=== PATIENT | female | born 1955 | race Caucasian/White ===

== ENCOUNTER 2023-07-18 05:39 | Emergency (ER) | payer BC, MEDICARE ==
[~2023-07-18] VITALS: Ht 160 cm; Wt 69.0 kg
[2023-07-18] MEDS ORDERED: HYDROCODON-ACE1 EA10 PO (07:26)
[2023-07-18 07:56] VITALS: BP 134/88
== END 2023-07-18 07:58 | disposition home or self-care (01) ==
LOC: ED 05:39
DX: S52.522A Torus fracture of lower end of left radius, initial encounter for closed fracture (principal); W19.XXXA Unspecified fall, initial encounter; Y93.H2 Activity, gardening and landscaping; Z88.0 Allergy status to penicillin
CPT/HCPCS: 73110; 99283-25; A9270

== ENCOUNTER 2025-09-26 09:08 | Day surgery (SDC) | payer MEDICARE, BC ==
[~2025-09-26] VITALS: Ht 167.6 cm; Wt 65.0 kg
[~2025-09-26 09:08] MED LIST: CALCIUM500 M1 PO; FLUTICASONE PRO16 GM NAS; GINKGO BILOBA40 M1 PO; HYDROCODON-ACE1 EA10 PO; IBLOOD GLUCOSE TEST STRIP 1 EA TEST VI PRN; IPRATROPIUM BRO30 ML NAS; KEPPRA500 MG PO; LACTATED RINGER'S 1,000 ML IV SCH; LIDOCAINE HCL 1% 5 ML SDV INJ ONE; OMEPRAZOLE20 MG PO; VITAMIN D325 MC4 PO; ZINC30 MG PO
[2025-09-26 09:33] VITALS: BP 107/62
[2025-09-26] MEDS ORDERED: LIDOCAINE HCL 2% 5 ML SDV ONE (11:26)
--- NOTE | 2025-09-26 12:20 | NUR ---
09/26/25 1220 Huong Burdick 1210-PATIENT ARRIVED TO PACU ON 6L MASK RR EVEN NONAROUSABLE PATIENT COUGHING. SR HR 80-90'S IVF INFUSING. ABDOMEN SOFT LAYING LEFT LATERAL. 1212-PATIENT COUGHING NONAROUSABLE MOUTH SUCTIONED CLEAR SECRETIONS. 1220-PATIENT REMAINS NONAROUSABLE 6L MASK RR EVEN 100% IVF INFUSING.
[2025-09-26 13:13] VITALS: BP 120/67
--- NOTE | 2025-09-26 13:38 | NUR ---
1315: PATIENT BACK IN DAY SURGERY ROOM FROM PACU. DENIES PAIN. REQUESTING MORE TIME TO REST. VS CHECKED. CALL LIGHT WITHIN REACH. AT BEDSIDE.
--- NOTE | 2025-10-01 18:02 | PATH ---
[facility] [address] [facility] [place], [place] [address] Signed SPECIMEN(S): A RECTAL POLYP, 10 CM SPECIMEN SOURCE: A. RECTAL POLYP, 10 CM CLINICAL HISTORY: History of polyps, screening. Post colon sigmoid diverticulitis, internal hemorrhoid, polyp at 10 cm. FINAL PATHOLOGIC DIAGNOSIS: rectum polypectomy, 10 cm: - Hyperplastic polyp. IRG MICROSCOPIC EXAMINATION: Histologic sections of all submitted blocks (or IHC as applicable) are digitally scanned and examined. These findings, together with the gross examination, support the pathologic diagnosis. GROSS DESCRIPTION: The specimen, labeled and designated "Tito Ayala, " and designated on the requisition "rectum polypectomy, 10 cm," is received in formalin and consists of two harrison soft tissue fragments that measure 0.2 and 0.3 cm in greatest dimension. The specimen is entirely submitted in (A1). FB (under the direct supervision of a pathologist) The Gross Description was prepared using a voice recognition system. The report was reviewed for accuracy; however, sound-alike word errors, addition and/or deletions may occur. If there is any question about this report, please contact Client Services. ADDITIONAL NOTES: Immunohistochemical and/or in situ hybridization studies if performed in this case included appropriate positive controls that reacted as expected. This test was developed and its performance characteristics determined by [facility]. It has not been cleared or approved by the U.S. Food and Drug Administration. The FDA has determined that such clearance or approval is not necessary. This test is used for clinical purposes. It should not be regarded as investigational or for research. [facility] is certified under the Clinical Laboratory Improvement PATIENT NAME: RADHA AYALA PATHOLOGY DATE OF : 55 REPORT #: [id number] PHYSICIAN: VIJAY SAUNDERS PCP: MELBA PRESTON PA-C REPORT IS CONFIDENTIAL AND NOT TO BE RELEASED WITHOUT AUTHORIZATION [facility] [address] [place], [place] [address], [place] [address] Signed Amendments of 1988 (CLIA) as qualified to perform high complexity clinical laboratory testing. PERFORMING LABORATORY: Technical component was performed by [facility], [address] [place] [address] (CLIA# [id number]). Professional interpretation was performed by [facility], [address] [place] [id number] (CLIA#: [id number]). Diagnostician: Tj Farmer MD Pathologist Electronically Signed 10/01/2025 Copies: ~ PATIENT NAME: RADHA AYALA PATHOLOGY DATE OF : 55 REPORT #: [id number] PHYSICIAN: VIJAY SAUNDERS PCP: MELBA PRESTON PA-C REPORT IS CONFIDENTIAL AND NOT TO BE RELEASED WITHOUT AUTHORIZATION
== END 2025-09-26 13:56 | disposition home or self-care (01) ==
LOC: DS 09:08
PROVIDERS: ATTEND Surgery
PROC: 0DBP8ZX Excision of Rectum, Via Natural or Artificial Opening Endoscopic, Diagnostic (ICD-10-PCS; principal; 2025-09-26 10:30)
DX: Z12.11 Encounter for screening for malignant neoplasm of colon (principal); K62.1 Rectal polyp; K57.30 Diverticulosis of large intestine without perforation or abscess without bleeding; K64.8 Other hemorrhoids; K63.89 Other specified diseases of intestine; E78.5 Hyperlipidemia, unspecified; K21.9 Gastro-esophageal reflux disease without esophagitis
CPT/HCPCS: 00811; 88305; J2003; J2704; J7121